=== PATIENT | female | born 1985 | race Caucasian/White ===

== ENCOUNTER 2022-02-26 01:45 | Observation (INO) ==
[2022-02-26 02:56] LABS: Calcium 8.9 mg/dL (8.6-10.3); Potassium 3.9 mmol/L (3.5-5.0)
[2022-02-26] MEDS ORDERED: Dextrose 50% Syringe 50 ml 25 GM/50 ML SYRINGE IV PUSH PRN (04:02)
[2022-02-26 04:07] LABS: High Sensitivity Troponin 1 Hr 422 pg/mL (<15)
[2022-02-26 04:15] LABS: C Reactive Protein 6.38 mg/L (<8.01); Magnesium 1.8 mg/dL (1.9-2.7)
[2022-02-26] MEDS ORDERED: Heparin DRIP 25,000 UNITS BAG 25,000 UNITS/500 ML BAG IV SCH (04:15)
[2022-02-26] MEDS ORDERED: Heparin 5000 UNITS/ML 1 mL VIAL IV SCH (05:00)
[2022-02-26 06:28] LABS: ABS Basophils 0.1 10^3/ul (0-0.2); ABS Eosinophils 0.3 10^3/ul (0-0.6); ABS Lymphocytes 3.9 10^3/ul (1.0-4.8); ABS Monocytes 0.8 10^3/ul (0-0.8); ABS Neutrophils 5.6 10^3/ul (1.5-7.7); Eosinophil % 2.7 %; Hematocrit 42 % (35-47); Hemoglobin 14.6 g/dL (12.0-16.0); Lymphocyte % 36.6 %; Mean Corpuscular HGB Conc 35 g/dL (31-36); Mean Corpuscular Hemoglobin 28 pg (27-31); Mean Corpuscular Volume 81 fL (80-97); Mean Platelet Volume 7.5 fL (7.4-10.4); Nucleated Red Blood Cells % 0.1; Platelet Count 291 10^3/uL (150-450); Red Blood Count 5.24 10^6 /uL (3.70-4.87); Red Cell Distribution Width 14 % (10-15); White Blood Count 10.6 10^3/uL (3.5-10.8)
[2022-02-26 06:32] LABS: Urine Appearance Cloudy; Urine Bilirubin Negative (Negative); Urine Blood 1+ (Negative); Urine Color Yellow; Urine Glucose 3+(>=500 mg/dL) (Negative); Urine Ketones Negative (Negative); Urine Nitrite Negative (Negative); Urine Protein Negative (Negative); Urine Specific Gravity 1.009 (1.002-1.030); Urine Urobilinogen Negative (Negative)
[2022-02-26 06:40] LABS: Urine Bacteria Absent (Absent); Urine Red Blood Cell 2+(6-10/hpf) (Absent); Urine Squamous Epithelial Cell Present (Absent); Urine White Blood Cell 3+(>20/hpf) (Absent)
[2022-02-26 06:58] LABS: Urine Benzodiazepine Screen None Detected (None Detect); Urine Cannabinoids Screen None Detected (None Detect); Urine Opiates Screen None Detected (None Detect)
[2022-02-26] MEDS ORDERED: Magnesium Sulfate 2 gm BAG 2 GM/50 ML BAG IVPB ONE (07:16)
[2022-02-26] MEDS ORDERED: Sulfur Hexaflouride MICROSPHR 25 MG VIAL ONE (08:59)
[2022-02-26 09:43] LABS: HDL Cholesterol 34.2 mg/dL
[2022-02-26 10:00] LABS: TSH Ultra Thyroid Stim Horm 3.36 mcIU/mL (0.34-5.60)
[2022-02-26 10:01] LABS: Free T3 3.4 pg/mL (2.5-3.9)
[2022-02-26 10:02] LABS: Free T4 1.04 ng/dL (0.61-1.12)
[2022-02-26] MEDS ORDERED: Iodixanol (CONTRAST) 320 MG/ML 100 ML SDV IV ONE (10:20)
[2022-02-26] MEDS ORDERED: NS 0.9% 1000 ml BAG 1,000 ML IV SCH ×2 (11:30→13:45)
[2022-02-26] MEDS ORDERED: fentaNYL 100 mcg/2 ml 50 MCG/ML VIAL ONE (12:37)
[2022-02-26] MEDS ORDERED: Heparin 1,000 UNIT/ML 10 ml (10,000 UNITS) CATHLAB/DIALYSIS ONE (12:37)
[2022-02-26] MEDS ORDERED: Midazolam 5 mg/5 ml VIAL 1 mg/ml 5 ml VIAL (5 mg) ONE (12:37)
[2022-02-26] MEDS ORDERED: VERAPAMIL 2.5 MG/ML 2 ML VIAL ** 5 mg/2 ml ONE (12:37)
[2022-02-26] MEDS ORDERED: Lidocaine 1% MPF 5 ML VIAL ONE (12:38)
[2022-02-26] MEDS ORDERED: nitroGLYCERIN DRIP 25,000 MCG/250 ML BTL ONE (12:38)
[2022-02-26] MEDS ORDERED: Heparin 2 UNITS/ML 1000 mls 2,000 ML IV ONE (12:38)
[2022-02-26] MEDS ORDERED: Iohexol 350 (CONTRAST) 100 ML PAK IV ONE (12:39)
[2022-02-26 17:41] VITALS: BP 120/83
== END 2022-02-26 18:11 | disposition home or self-care (01) ==
LOC: ED 01:45 → EDHOLD 01:45 → SUATTDRO 02:37 → EDHOLD 11:33
PROVIDERS: ADMIT Internal Medicine; ATTEND Hospitalist